=== PATIENT | male | born 1950 | race American Indian/Alaskan Native ===

== ENCOUNTER 2018-05-25 16:48 | Emergency (ER) | payer OTHER ==
--- NOTE | 2018-05-25 20:54 | Emergency Department Report ---
<YOSSI MCCONNELL SHARRI - Last Filed: 05/25/18 22:27> ED Male HPI - General Chief complaint: Urogenital-Male Stated complaint: ABD PAIN Time Seen by Provider: 05/25/18 20:37 Source: patient Mode of arrival: Ambulatory Limitations: No Limitations - History of Present Illness Initial comments: This is a 67-year-old -[place] male who presents with dysuria and lower abdominal pain. One week. History of diabetes type 2, CHF, hepatitis C, GERD, chronic kidney disease, on dialysis. Patient states he usually avoids 16 ounces a day but over the past week very little is coming out. When he urinates there is a throbbing sharp sensation to penis. Patient has chronic back pain and unable to determine acute pain. He denies hematuria, fever, nausea or vomiting, penile discharge, testicular pain or swelling. MD Complaint: testicle pain, dysuria Onset/Timin -: week(s) Location: penis Radiation: none Severity: moderate Severity scale (0 -10): 9 Quality: sharp, other (throbbing) Consistency: intermittent Improves with: none Worsens with: urination dysuria - Related Data Home Medications Medication Instructions Recorded Confirmed Last Taken Furosemide [Lasix] 40 mg PO DAILY 08/06/13 05/23/15 Unknown Lactulose [Cephulac] 20 gm PO BID 08/06/13 05/23/15 Unknown Probenecid/Colchicine 0.6 mg PO DAILY 08/06/13 05/23/15 Unknown [Probenecid-Colchicine Tab] Spironolactone [Aldactone] 100 mg PO DAILY 08/06/13 05/23/15 Unknown diphenhydrAMINE [Benadryl CAP] 25 mg PO TID PRN 08/06/13 05/23/15 Unknown traMADol [Ultram 50 MG tab] 50 mg PO Q6H PRN 08/06/13 05/23/15 Unknown Harvoni 90-400 mg Tablet 90 - 400 mg PO DAILY 05/23/15 05/23/15 Unknown Insulin NPH/Regular [NovoLIN 70/30] 25 unit SUB-Q QPMDIAB 05/23/15 05/23/15 Unknown Insulin NPH/Regular [NovoLIN 70/30] 52 unit SUB-Q QDDIAB 05/23/15 05/23/15 Unknown Previous Rx's Medication Instructions Recorded Last Taken Type Probenecid/Colchicine 1 each PO DAILY #15 tablet 05/23/15 Unknown Rx [Probenecid-Colchicine Tab] traMADol [Ultram 50 MG tab] 50 mg PO Q6HR PRN #15 tablet 05/23/15 Unknown Rx Ciprofloxacin HCl [Cipro] 500 mg PO BID #20 tablet 05/26/18 Unknown Rx Allergies Allergy/AdvReac Type Severity Reaction Status Date / Time No Known Allergies Allergy Verified 05/25/18 17:01 ED Review of Systems ROS: Stated complaint: ABD PAIN Other details as noted in HPI Constitutional: denies: chills, fever Respiratory: denies: cough, shortness of breath, wheezing Cardiovascular: denies: chest pain, palpitations Gastrointestinal: abdominal pain (lower abdominal pain). denies: nausea, diarrhea Genitourinary: dysuria. denies: urgency Musculoskeletal: back pain. denies: joint swelling, arthralgia Neurological: denies: headache, weakness, paresthesias Psychiatric: denies: anxiety, depression ED Past Medical Hx - Past Medical History Hx Congestive Heart Failure: Yes Hx Diabetes: Yes Hx Deep Vein Thrombosis: Yes Hx GERD: Yes Hx Liver Disease: Yes (HEPATITIS C) Hx Renal Disease: Yes Hx Kidney Stones: Yes Hx Psychiatric Treatment: Yes (ANXIETY / DEPRESSION) Hx HIV: No Additional medical history: GOUT. UMBILICAL HERNIA - Surgical History Additional Surgical History: liver transplant, on list for kidney transplant - Social History Smoking Status: Never Smoker Substance Use Type: None - Medications Home Medications: Home Medications Medication Instructions Recorded Confirmed Last Taken Type Furosemide [Lasix] 40 mg PO DAILY 08/06/13 05/23/15 Unknown History Lactulose [Cephulac] 20 gm PO BID 08/06/13 05/23/15 Unknown History Probenecid/Colchicine 0.6 mg PO DAILY 08/06/13 05/23/15 Unknown History [Probenecid-Colchicine Tab] Spironolactone [Aldactone] 100 mg PO DAILY 08/06/13 05/23/15 Unknown History diphenhydrAMINE [Benadryl CAP] 25 mg PO TID PRN 08/06/13 05/23/15 Unknown History traMADol [Ultram 50 MG tab] 50 mg PO Q6H PRN 08/06/13 05/23/15 Unknown History Harvoni 90-400 mg Tablet 90 - 400 mg PO DAILY 05/23/15 05/23/15 Unknown History Insulin NPH/Regular [NovoLIN 70/30] 25 unit SUB-Q QPMDIAB 05/23/15 05/23/15 Unknown History Insulin NPH/Regular [NovoLIN 70/30] 52 unit SUB-Q QDDIAB 05/23/15 05/23/15 Unknown History Probenecid/Colchicine 1 each PO DAILY #15 tablet 05/23/15 Unknown Rx [Probenecid-Colchicine Tab] traMADol [Ultram 50 MG tab] 50 mg PO Q6HR PRN #15 tablet 05/23/15 Unknown Rx Ciprofloxacin HCl [Cipro] 500 mg PO BID #20 tablet 05/26/18 Unknown Rx ED Physical Exam - General Limitations: No Limitations General appearance: alert, in no apparent distress, obese - Respiratory Respiratory exam: Present: normal lung sounds bilaterally. Absent: respiratory distress - Cardiovascular Cardiovascular Exam: Present: regular rate, normal rhythm. Absent: systolic murmur, diastolic murmur, rubs, gallop - GI/Abdominal GI/Abdominal exam: Present: soft, tenderness (left lower quadrant tenderness to deep palpation), normal bowel sounds. Absent: distended, guarding, rebound, rigid - Back Exam Back exam: Present: normal inspection - Neurological Exam Neurological exam: Present: alert, oriented X3 - Psychiatric Psychiatric exam: Present: normal affect, normal mood - Skin Skin exam: Present: warm, dry, intact, normal color. Absent: rash ED Course Vital Signs 05/25/18 05/25/18 17:01 19:49 Temperature 97.7 F 98.6 F Pulse Rate 114 H 104 H Respiratory 22 16 Rate Blood Pressure 126/70 Blood Pressure 124/81 [Left] O2 Sat by Pulse 95 100 Oximetry ED Medical Decision Making - Lab Data Result diagrams: 05/25/18 21:06 05/25/18 21:06 Lab Results 05/25/18 05/25/18 Range/Units 21:06 21:06 WBC 18.6 H (4.5-11.0) K/mm3 RBC 4.59 (3.65-5.03) M/mm3 Hgb 13.3 (11.8-15.2) gm/dl Hct 41.7 (35.5-45.6) % MCV 91 (84-94) fl MCH 29 (28-32) pg MCHC 32 (32-34) % RDW 18.6 H (13.2-15.2) % Plt Count 265 (140-440) K/mm3 Lymph # Waiter Waitress Add Manual Diff Complete Total Counted 100 Seg Neuts % (Manual) 46.0 (40.0-70.0) % Band Neutrophils % 0 % Lymphocytes % (Manual) 35.0 (13.4-35.0) % Reactive Lymphs % (Man) 1.0 % Monocytes % (Manual) 7.0 (0.0-7.3) % Eosinophils % (Manual) 1.0 (0.0-4.3) % Basophils % (Manual) 0 (0.0-1.8) % Metamyelocytes % 7.0 % Myelocytes % 3.0 % Promyelocytes % 0 % Blast Cells % 0 % Nucleated RBC % Not Reportable Seg Neutrophils # Man 8.6 H (1.8-7.7) K/mm3 Band Neutrophils # 0.0 K/mm3 Lymphocytes # (Manual) 6.5 H (1.2-5.4) K/mm3 Abs React Lymphs (Man) 0.2 K/mm3 Monocytes # (Manual) 1.3 H (0.0-0.8) K/mm3 Eosinophils # (Manual) 0.2 (0.0-0.4) K/mm3 Basophils # (Manual) 0.0 (0.0-0.1) K/mm3 Metamyelocytes # 1.3 K/mm3 Myelocytes # 0.6 K/mm3 Promyelocytes # 0.0 K/mm3 Blast Cells # 0.0 K/mm3 WBC Morphology Not Reportable Hypersegmented Neuts Not Reportable Hyposegmented Neuts Not Reportable Hypogranular Neuts Not Reportable Smudge Cells Not Reportable Toxic Granulation Not Reportable Toxic Vacuolation Not Reportable Dohle Bodies Not Reportable Pelger-Huet Anomaly Not Reportable [place] Rods Not Reportable Platelet Estimate Consistent w auto Clumped Platelets Not Reportable Plt Clumps, EDTA Not Reportable Large Platelets 1+ Giant Platelets Not Reportable Platelet Satelliting Not Reportable Plt Morphology Comment Not Reportable RBC Morphology Not Reportable Dimorphic RBCs Not Reportable Polychromasia Not Reportable Hypochromasia Not Reportable Poikilocytosis 1+ Anisocytosis 1+ Microcytosis Not Reportable Macrocytosis Not Reportable Spherocytes Not Reportable Pappenheimer Bodies Not Reportable Sickle Cells Not Reportable Target Cells Not Reportable Tear Drop Cells Not Reportable Ovalocytes Not Reportable Helmet Cells Not Reportable [place] Bodies Not Reportable [place] Rings Not Reportable Isidro Cells Not Reportable Bite Cells Not Reportable Crenated Cell Not Reportable Elliptocytes Not Reportable Acanthocytes (Spur) Not Reportable Rouleaux Not Reportable Hemoglobin C Crystals Not Reportable Schistocytes Not Reportable Malaria parasites Not Reportable [place] Bodies Not Reportable Hem Pathologist Commnt No Sodium 142 (137-145) mmol/L Potassium 5.6 H (3.6-5.0) mmol/L Chloride 96.9 L (98-107) mmol/L Carbon Dioxide 28 (22-30) mmol/L Anion Gap 23 mmol/L BUN 58 H (9-20) mg/dL Creatinine 9.3 H (0.8-1.5) mg/dL Estimated GFR 7 ml/min BUN/Creatinine Ratio 6 % Glucose 117 H (75-100) mg/dL Calcium 9.9 (8.4-10.2) mg/dL Total Bilirubin 0.20 (0.1-1.2) mg/dL AST 12 (5-40) units/L ALT 13 (7-56) units/L Alkaline Phosphatase 125 (35-129) units/L Total Protein 7.4 (6.3-8.2) g/dL Albumin 4.3 (3.9-5) g/dL Albumin/Globulin Ratio 1.4 % - Medical Decision Making Patient was examined by provider fast track. Patient slightly tachycardic on arrival wearing home oxygen. Obtained labs and CT of abdomen. WBC's and potassium is elevated. BUN and creatinine elevated. Patient on dialysis for chronic kidney disease. CBC event is pending. Chart signed over to Corwin Gilliland Critical care attestation.: If time is entered above; I have spent that time in minutes in the direct care of this critically ill patient, excluding procedure time. ED Disposition Clinical Impression: UTI (urinary tract infection) Qualifiers: Urinary tract infection type: acute cystitis Hematuria presence: without hematuria Qualified Code(s): N30.00 - Acute cystitis without hematuria Disposition: DC-01 TO HOME OR SELFCARE Condition: Stable Instructions: Urinary Tract Infection in Men (ED) Prescriptions: Ciprofloxacin HCl [Cipro] 500 mg PO BID #20 tablet Referrals: PRIMARY CARE,MD [Primary Care Provider] - 3-5 Days Forms: Work/School Release Form(ED) <EDITH LEVINE - Last Filed: 05/26/18 00:16> ED Medical Decision Making - Lab Data Result diagrams: 05/25/18 21:06 05/25/18 21:06 - Medical Decision Making UA with WBCs positive plan treat for UTI Levaquin by mouth 500 daily 10 days patient will have dialysis in a.m. patient denies chest pain shortness of breath patient refuses to discuss Kayexalate EKG or further workup plan DC'd home with report for dialysis as scheduled in a.m. cipro by mouth bid 10 days. Patient verbalized agreement and understanding with same will be DC'd home in stable condition at this time. ED Disposition Is pt being admited?: No Does the pt Need Aspirin: No Time of Disposition: 00:16
[2018-05-25 21:23] LABS: Hematocrit 41.7 % (35.5-45.6); Hemoglobin 13.3 gm/dl (11.8-15.2); Mean Corpuscular HGB Conc 32 % (32-34); Mean Corpuscular Hemoglobin 29 pg (28-32); Mean Corpuscular Volume 91 fl (84-94); Platelet Count 265 K/mm3 (140-440); Red Blood Count 4.59 M/mm3 (3.65-5.03); Red Cell Distribution Width 18.6 % (13.2-15.2)
[2018-05-25 21:49] LABS: Albumin 4.3 g/dL (3.9-5); Calcium 9.9 mg/dL (8.4-10.2)
[2018-05-25 22:09] LABS: Basophils % (Manual) 0 % (0.0-1.8); Myelocytes # (Manual) 0.6 K/mm3; Total Cells Counted 100
[2018-05-25 22:10] LABS: Anisocytosis 1+; Large Platelets 1+; Platelet Estimate Consistent w Auto; Poikilocytosis 1+
--- NOTE | 2018-05-25 22:35 | Cat Scan Report ---
FINAL REPORT PROCEDURE: CT ABDOMEN PELVIS WO CON TECHNIQUE: Computerized axial tomography of the abdomen and pelvis was performed without intravenous contrast. This study is performed without intravascular contrast material and its sensitivity for abdominal and pelvic pathology, including neoplasms, inflammation, abscess, free fluid, thrombosis, arterial dissection and infarction, is reduced compared with a contrast enhanced study. HISTORY: LLQ tenderness COMPARISON: No prior studies are available for comparison. FINDINGS: Visualized lower thorax: There is calcified pleural plaque at the right lung base. There is scarring at the right lung base. There is a thick-walled cavitation at the right lung base measuring 2.9 centimeters which could be a post infectious pneumatocele. Necrotic tumor considered unlikely but not excluded.. Liver: There appears to have been partial resection of the right lobe of the liver. There is no obvious liver mass. Exam is limited due to lack of contrast.. Spleen: Spleen is enlarged. There are calcified granulomas.. Gallbladder and biliary system: There appears to have been a cholecystectomy.. Pancreas: Normal. Adrenals: Normal. Kidneys: There are no kidney stones. There is no hydronephrosis. There are tiny hemorrhagic cysts in the right kidney.. GI tract: Bowel is distorted most likely due to adhesions. There is no obstruction. There is a ventral hernia defect containing bowel without evidence of incarceration. The appendix is normal.. Lymph nodes and mesentery: Normal. Vasculature: There is calcified atherosclerosis. There is no aneurysm.. There is an IVC filter. Bladder: Normal. Reproductive organs: Normal. Peritoneum: There is no ascites, free air, abscess or adenopathy.. Musculoskeletal structures: No significant abnormality. IMPRESSION: There is calcified pleural plaque at the right lung base. There is scarring at the right lung base. There is a thick-walled cavitation at the right lung base measuring 2.9 centimeters which could be a post infectious pneumatocele. Necrotic tumor considered unlikely but not excluded.. There appears to have been partial resection of the right lobe of the liver. There is no obvious liver mass. Exam is limited due to lack of contrast.. Spleen is enlarged. There are calcified granulomas.. There appears to have been a cholecystectomy.. There are no kidney stones. There is no hydronephrosis. There are tiny hemorrhagic cysts in the right kidney.. Bowel is distorted most likely due to adhesions. There is no obstruction. There is a ventral hernia defect containing bowel without evidence of incarceration. The appendix is normal.. There is no ascites, free air, abscess or adenopathy. .
[2018-05-25 23:15] LABS: Bacteria,Urine 1+ /HPF (Negative); Bilirubin,Urine NEG (Negative); Blood,Urine SM (Negative); Urobilinogen,Urine < 2.0 mg/dL (<2.0)
[2018-05-25 23:17] LABS: Protein,Urine >500 mg/dL (Negative)
[2018-05-25 23:18] LABS: Color,Urine Yellow (Yellow); RBC,Urine > 182.0 /HPF (0.0-6.0); WBC,Urine > 182.0 /HPF (0.0-6.0)
[2018-05-25] MEDS ORDERED: ROCEPHIN/NS 1 GM/50 ML 1 GM/50 ML BAG IV ONE (23:52)
[2018-05-26] MEDS ORDERED: LEVAQUIN PO ONE (00:14)
[2018-05-26 00:28] VITALS: BP 100/61
== END 2018-05-26 00:26 | disposition home or self-care (01) ==
LOC: ED 16:48
DX: N30.00 Acute cystitis without hematuria (principal); I50.9 Heart failure, unspecified; K21.9 Gastro-esophageal reflux disease without esophagitis; E11.22 Type 2 diabetes mellitus with diabetic chronic kidney disease; N18.6 End stage renal disease; Z99.2 Dependence on renal dialysis; Z79.4 Long term (current) use of insulin; Z86.718 Personal history of other venous thrombosis and embolism
CPT/HCPCS: 36415; 74176; 80053; 81001; 85007; 85025; 99284; J0696